=== PATIENT | male | born 1945 | race Caucasian/White ===

== ENCOUNTER → 2016-10-12 | Outpatient (CLI) | payer OTHER | END | disposition home or self-care (01) | LOC: PCVCCLINIC 12:49 | PROVIDERS: ATTEND Internal Medicine | DX: I25.10 Atherosclerotic heart disease of native coronary artery without angina pectoris (principal); E78.5 Hyperlipidemia, unspecified; E11.9 Type 2 diabetes mellitus without complications; R09.89 Other specified symptoms and signs involving the circulatory and respiratory systems; Z87.891 Personal history of nicotine dependence; Z79.82 Long term (current) use of aspirin; Z79.84 Long term (current) use of oral hypoglycemic drugs; Z88.2 Allergy status to sulfonamides | CPT/HCPCS: 93005; G0463 ==

== ENCOUNTER → 2016-10-17 | Outpatient (CLI) | payer OTHER ==
--- NOTE | 2016-10-17 10:51 | PCVCIMAG ---
EXAM: AORTOILIAC DUPLEX INDICATION: Peripheral arterial disease FINDINGS: AORTA: Suprarenal aorta measures maximum diameter of 2.8 cm. There is not a fusiform infrarenal aortic aneurysm. The infrarenal aorta measures maximum diameter of 2.4 cm. No aortic stenosis. RIGHT COMMON ILIAC ARTERY: Maximum diameter is 1.2 cm. No significant stenosis. RIGHT EXTERNAL ILIAC ARTERY: No significant stenosis. LEFT COMMON ILIAC ARTERY: Maximum diameter is 1.2 cm. No significant stenosis. LEFT EXTERNAL ILIAC ARTERY: No significant stenosis. IMPRESSION: No abdominal aortic aneurysm. No aortoiliac stenosis seen. LOC:[id number]
--- NOTE | 2016-10-17 14:06 | PCVCIMAG ---
APPROVED REPORT Exam: Stress Echocardiogram Indication: Elevated Calcium Score Stress Nurse: Citlaly Salomon RN Status: routine HR: 68 bpm Rhythm: NSR Procedure The patient underwent an Exercise Stress Test using the Samson Protocol. Blood pressure, heart rate, and EKG were monitored. An Echocardiogram was performed by lock technician in four stages in quad fashion. At peak stress, four selected images were obtained and placed side by side with resting images for comparison. Stress Test Details Stress Test: Exercise stress testing was performed using a Samson protocol. HR Resting HR: 68 bpmMax Heart Rate (APMHR): 150 bpm Max HR Achieved: 160 bpmTarget HR (85% APMHR): 127 bpm % of APMHR: 106 BP Resting BP: 142/80 mmHg Max BP: 180/80 mmHg ECG Resting ECG: Sinus Rhythm ST Change: Downsloping ST depression Maximum ST Deviation: 1.7 mm Arrhythmia: VPC's Clinical Reason for Termination: Maximal effort Stress Symptoms: Leg Fatigue Exercise duration: 6 min sec Highest Stage Achieved: Stage 2: 2.5 mph at 12% grade. Exercise capacity: 7.00 METs Overall Exercise Capacity for Age: Average Angina Score: None Stress ECG Conclusion Clinical: Non-ischemic Electrocardiographic response: Abnormal exercise stress ECG consistent with stress-induced myocardial ischemia. Abnormal echocardiographic response Greenberg treadmill score predicts intermediate risk for adverse myocardial events. Greenberg Treadmill Score is -2.5 which is Moderate risk. Pre-Stress Echo The resting Echocardiogram showed normal left ventricular contractility with an estimated Ejection Fraction of about >55%. Post-Stress Echo The stress Echocardiogram showed normal left ventricular contractility with an estimated Ejection Fraction of about 55-60%. The stress Echocardiogram demonstrated wall motion abnormality in the inferior and basal inferoseptal colmenares. Conclusion Clinical Response: Non-ischemic Exercise Capacity: Below Average Stress ECG Response: Ischemic Stress Echo Images: Ischemic
== END | disposition home or self-care (01) ==
LOC: PCVCIMAG 08:32
PROVIDERS: ATTEND Internal Medicine
DX: I25.9 Chronic ischemic heart disease, unspecified (principal); I73.9 Peripheral vascular disease, unspecified; E11.9 Type 2 diabetes mellitus without complications; E78.5 Hyperlipidemia, unspecified; E83.52 Hypercalcemia
CPT/HCPCS: 93325; 93351; 93880; 93978

== ENCOUNTER → 2016-11-01 | Outpatient (CLI) | payer OTHER ==
--- NOTE | 2016-11-01 11:41 | PCVCIMAG ---
EXAM: DUPLEX ULTRASOUND OF THE RIGHT GROIN INDICATION: Groin swelling and pain. FINDINGS: No pseudoaneurysm is present. The common femoral artery and vein are patent. No arteriovenous fistula is seen. IMPRESSION: Study is negative for pseudoaneurysm. Incidental note is made of a 1.9 x 2.1 x 6.5 cm subcutaneous resolving hematoma. LOC:[place] [id number]
== END | disposition home or self-care (01) ==
LOC: PCVCIMAG 09:55
PROVIDERS: ATTEND Internal Medicine
DX: M79.81 Nontraumatic hematoma of soft tissue (principal); E11.9 Type 2 diabetes mellitus without complications; I10 Essential (primary) hypertension; I73.9 Peripheral vascular disease, unspecified; Z79.4 Long term (current) use of insulin
CPT/HCPCS: 93926

== ENCOUNTER → 2019-01-01 | Outpatient (CLI) | payer OTHER | END | disposition home or self-care (01) | LOC: PCVCCLINIC 11:30 | PROVIDERS: ATTEND Internal Medicine | DX: I25.10 Atherosclerotic heart disease of native coronary artery without angina pectoris (principal); E78.5 Hyperlipidemia, unspecified; E11.9 Type 2 diabetes mellitus without complications; Z79.82 Long term (current) use of aspirin; Z87.891 Personal history of nicotine dependence; Z88.1 Allergy status to other antibiotic agents | CPT/HCPCS: 93005; G0463 ==

== ENCOUNTER → 2019-02-05 | Outpatient (CLI) | payer OTHER ==
--- NOTE | 2019-02-05 15:45 | PCVCIMAG ---
APPROVED REPORT Study performed: 02/05/2019 11:29:02 Exam: Stress Echocardiogram Indication: CAD , Dyspnea Patient Location: Echo lab Stress Nurse: Kayla William RN Room #: 2 Status: routine Ht: 5 ft 8 in HR: 84 bpm BP: 142/84 mmHg Rhythm: NSR Medical History Medical History: CAD non obstructive, Diabetes, Dyslipidemia Cardiac Risk Factors: Dyslipidemia, DM Previous Cardiac Procedures: Cath, no stents Pretest Chest Pain Characteristics: No chest pain Exercise History: Physically active Procedure The patient underwent an Exercise Stress Test using the Samson Protocol. Blood pressure, heart rate, and EKG were monitored. An Echocardiogram was performed by reliability technicians in four stages in quad fashion. At peak stress, four selected images were obtained and placed side by side with resting images for comparison. Stress Test Details Stress Test: Exercise stress testing was performed using a Samson protocol. HR Resting HR: 84 bpmMax Heart Rate (APMHR): 147 bpm Max HR Achieved: 169 bpmTarget HR (85% APMHR): 124 bpm % of APMHR: 114 Recovery HR: 108 bpm HR response to stress: Normal HR response to stress BP Resting BP: 142/84 mmHg Max BP: 164/80 mmHg Recovery BP: 144/70 mmHg BP response to stress: Normal blood pressure response to stress. ECG Resting ECG: Sinus Rhythm, NSSTT changes Stress ECG: Sinus Rhythm, nonspecific ST-T abnormalities ST Change: Non-ischemic Maximum ST Deviation: -1.85 mm Arrhythmia: Occ PVCs Recovery ECG: Sinus Rhythm, NSSTT changes Recovery ST Change: Non-ischemic Recovery ST Deviation: -1.0 mm Recovery Arrhythmia: Rare PVCs Clinical Reason for Termination: Maximal effort Stress Symptoms: none Exercise duration: 7 min 00 sec Highest Stage Achieved: Stage 3: 3.4 mph at 14% grade. Exercise capacity: 10.1 METs Overall Exercise Capacity for Age: Average Scale: Active Angina Score: None No complications. Stress ECG Conclusion Clinical: Non-ischemic ECG: Iischemic, similar to a study dated October 2016 Greenberg Treadmill Score is 16.3 which is Low risk. Pre-Stress Echo The resting Echocardiogram showed normal left ventricular contractility with an estimated Ejection Fraction of about 55-60%. Normal wall motion in all segments on baseline images. Post-Stress Echo The stress Echocardiogram showed normal left ventricular contractility with an estimated Ejection Fraction of about 65-70%. Normal augmentation of wall motion in all segments on post stress images. Clinical No clinical or ECG evidence for ischemia. Conclusion Clinical Response: Non-ischemic Exercise Capacity: Average Stress ECG Response: Ischemic Stress Echo Images: Non-ischemic No clinical or echocardiographic evidence for ischemia. Ischemic electrocardiographic changes, unchanged from previously and consistent with a false positive response No echocardiographic evidence for exercise induced ischemia. Normal stress echocardiogram with maximal exercise stress. Normal color doppler. No regurgitation or stenosis present on pulmonic, mitral, tricuspid and aortic valves. <Conclusion> No clinical or echocardiographic evidence for ischemia. Ischemic electrocardiographic changes, unchanged from previously and consistent with a false positive response No echocardiographic evidence for exercise induced ischemia. Normal stress echocardiogram with maximal exercise stress. Normal color doppler. No regurgitation or stenosis present on pulmonic, mitral, tricuspid and aortic valves.
== END | disposition home or self-care (01) ==
LOC: PCVCIMAG 11:11
PROVIDERS: ATTEND Internal Medicine
DX: I25.10 Atherosclerotic heart disease of native coronary artery without angina pectoris (principal); R06.09 Other forms of dyspnea; R93.1 Abnormal findings on diagnostic imaging of heart and coronary circulation; E78.5 Hyperlipidemia, unspecified; M79.89 Other specified soft tissue disorders; R10.31 Right lower quadrant pain; E11.9 Type 2 diabetes mellitus without complications; Z87.891 Personal history of nicotine dependence
CPT/HCPCS: 93325; 93351